=== PATIENT | female | born 1990 | race Two or more races ===

== ENCOUNTER 2019-09-17 08:55 | Observation (INO) | payer MEDICAID, OTHER ==
[2019-09-18] MEDS ORDERED: PREN-96 PO (14:18)
[2019-09-18] MEDS ORDERED: FERR-7 PO (14:19)
== END 2019-09-17 10:20 | disposition home or self-care (01) | DRG 566 ==
LOC: LDRP 08:55
PROVIDERS: ADMIT Obstetrics & Gynecology; ATTEND Obstetrics & Gynecology
DX: O48.0 Post-term pregnancy (principal); Z3A.40 40 weeks gestation of pregnancy
CPT/HCPCS: 59025; 76818; 81002; G0378

== ENCOUNTER 2019-09-18 01:35 | Inpatient (IN) | payer MEDICAID ==
[~2019-09-18] VITALS: Ht 167.6 cm; Wt 96.2 kg
[2019-09-18] VITALS (21 sets, daily range): BP systolic 98–132; BP diastolic 61–81
[2019-09-18] MEDS ORDERED: LACTATED RINGER'S 1,000 ML IV SCH (02:17)
[2019-09-18] MEDS ORDERED: LACT. RINGERS/OXYTOCIN 20UNITS 1,000 ML IV SCH (02:17)
[2019-09-18] MEDS ORDERED: LIDOCAINE 2%HCL (LOCAL ANESTH.) INJ 20ML MDV ID ONE (02:30)
[2019-09-18] MEDS ORDERED: WITCH HAZEL-GLYCERIN PAD TOP PRN (02:30)
[2019-09-18] MEDS ORDERED: PHISODERM TOP SOLN 240ML BTL TOP PRN (02:30)
[2019-09-18] MEDS ORDERED: METHYLERGONOVINE MALEATE 0.2 MG/ML AMP IM PRN (02:30)
[2019-09-18] MEDS ORDERED: NALBUPHINE HCL 10 MG/1ml INJECTION IV PRN (02:30)
[2019-09-18] MEDS ORDERED: DERMOPLAST 60ML BOTTLE TOP PRN (02:30)
[2019-09-18 02:47] LABS: Basophils # (auto) 0 uL; Basophils % (auto) 0.4 % (0.0-2.0); Eosinophils # (auto) 0 uL; Eosinophils % (auto) 0.2 % (0.0-7.0); Hemoglobin 10.9 g/dL (12.2-16.2); Monocytes # (auto) 0.5 uL; Monocytes % (auto) 4.3 % (0.0-12.0)
[2019-09-18 02:48] LABS: Hematocrit 33.4 % (36.0-46.0); Lymphocytes # (auto) 0.9 uL; Lymphocytes % (auto) 8.4 % (10.0-50.0); Mean Corpuscular Hemoglobin 25.5 pg (28.0-32.0); Mean Corpuscular Hgb Conc. 32.7 g/dL (32.0-36.0); Mean Corpuscular Volume 77.8 fL (80.0-100.0); Neutrophils # (auto) 9.7 uL; Neutrophils % (auto) 86.7 % (37.0-80.0); Platelet Count (auto) 199 10^3/uL (140-450); Red Blood Cells 4.29 10^6/uL (4.0-5.20); Red Cell Distribution Width 15.6 % (11.8-14.3); White Blood Cell 11.2 10^3/uL (4.4-10.8)
[2019-09-18 02:57] LABS: Urine Amorphous Crystal FEW /hpf (None Seen); Urine Bacteria MOD /hpf (None Seen); Urine Blood 1+ /uL (Negative); Urine Hyaline Cast FEW /lpf (0 - 2); Urine Mucus FEW (None Seen); Urine Specific Gravity 1.021 (1.001-1.035); Urine WBC 18 /hpf (0 - 5)
[2019-09-18 03:01] LABS: INR 0.94 (0.9-1.15); Partial Thromboplastin Time 26.3 sec (23.64-32.05)
[2019-09-18 03:04] LABS: Albumin 2.5 g/dL (3.4-5.0); BUN/Creatinine Ratio 11.3; Calcium 8.4 mg/dL (8.5-10.1); Potassium 3.7 mmol/L (3.5-5.1)
[2019-09-18 03:13] LABS: Bilirubin, Total 0.4 mg/dL (0.2-1.0); Total Protein 6.8 g/dL (6.4-8.2)
--- NOTE | 2019-09-18 07:09 | NUR ---
Ambulation: Fundus and lochia assessment performed prior to ambulation. Pt assisted to side of bed to dangle prior to ambulation. VS taken and stable. Patient OOB with standby assistance by RN. Patient ambulated to bathroom with steady gait. Patient able to void 900 without difficulty. Pericare teaching provided with returned demonstration by patient. Clean gown provided and bed linen changed. Patient ambulated back to bed with steady gait and no distress noted.
[2019-09-18] MEDS: IBUPROFEN 600 MG TAB PO PRN (09:27)
--- NOTE | 2019-09-18 12:55 | NUR ---
This RN called to pts room, pt stated that she pooped herself. This RN noted pt sitting on the edge of bed dripping blood onto the floor and sitting in a pool of blood. Pt c/o lower back pain. Pt's fundus checked and noted firm with massage at U, a golf ball sized clot noted and a large amount of bleeding noted. This RN calls for public speaking professorSHEN Kent and hemorrhage protocol initiated.
--- NOTE | 2019-09-18 12:55 | NUR ---
This RN called to pts room, pt stated that she pooped herself. This RN noted pt sitting on the edge of bed dripping blood onto the floor and sitting in a pool of blood. Pt A&O x 4. Pt c/o lower back pain. Pt's fundus checked and noted firm with massage at U, a golf ball sized clot noted and a large amount of bleeding noted. This RN calls for fiber technologistSHEN Kent and hemorrhage protocol initiated.
--- NOTE | 2019-09-18 12:56 | NUR ---
Dr. Aguillon called to [facility] to assess pt.
--- NOTE | 2019-09-18 12:58 | NUR ---
DR. JACKSON AT BEDSIDE AND GAVE ORDERS TO GIVE SL MEDICATIONS CYTOTEC 200 MCG. GIVEN IN FRONT OF DR. JACKSON. AND MEDICATION CYTO [place] 600 MCG RECTAL GIVEN.
--- NOTE | 2019-09-18 12:59 | NUR ---
Manual sweep of vagina performed by Dr. Aguillon, multiple clots noted with a large amount of bleeding noted.
--- NOTE | 2019-09-18 13:00 | NUR ---
Calixto catheter insertion Patient assessed and determined to be in need of calixto catheter. Order obtained from Dr. Aguillon. Patient educated on catheter and reason for insertion. All questions answered. Calixto catheter 16 guage Wolof inserted with clean sterile technique. Patient tolerated well.
--- NOTE | 2019-09-18 13:02 | NUR ---
Blood bank called for 2 units PRBC's stat.
[2019-09-18] MEDS ORDERED: METHYLERGONOVINE MALEATE 0.2 MG/ML AMP IM ONE (13:03)
--- NOTE | 2019-09-18 13:03 | NUR ---
ORDERS RECEIVED TO GIVE METHERGINE GIVE IM NOW .
[2019-09-18] MEDS ORDERED: SODIUM CHL 0.9% 1,000 ML IV ONE (13:05)
--- NOTE | 2019-09-18 13:05 | NUR ---
ORDERS RECEIVED FROM DR. JACKSON TO PATIENTS SHEN CLINTON I WAS PRESENT IN ROOM . PER DR. JACKSON GIVE 1000 NS WITH 20 UNITS OF PITOCIN AT BOLUS . ORDERS CARRIED OUT STARTED AT 1305 HOUR . DIRECTOR ROSMERY AT BEDSIDE AND RN ENDOCRINOLOGY TASHA.
--- NOTE | 2019-09-18 13:05 | NUR ---
started 2nd iv in right ac 20 gauge
--- NOTE | 2019-09-18 13:15 | NUR ---
RBC STARTED AT 1315 FOUR RN VERIFICATION OIL FIELD PUMPERRyan JESUS M. ROPER, DIRECTOR ROSMERY. DR. JACKSON ALSO AT BEDSIDE. TEMP TAKEN BEFORE TRANSFUSION STARTED 99.6 ORAL.
[2019-09-18 13:20] LABS: Basophils # (auto) 0 uL; Basophils % (auto) 0.1 % (0.0-2.0); Eosinophils # (auto) 0 uL; Hematocrit 30.1 % (36.0-46.0); Hemoglobin 9.8 g/dL (12.2-16.2); Lymphocytes % (auto) 8.6 % (10.0-50.0); Mean Corpuscular Hemoglobin 25.5 pg (28.0-32.0); Mean Corpuscular Hgb Conc. 32.4 g/dL (32.0-36.0); Mean Corpuscular Volume 78.5 fL (80.0-100.0); Monocytes # (auto) 0.4 uL; Monocytes % (auto) 3.4 % (0.0-12.0); Neutrophils # (auto) 9.9 uL; Neutrophils % (auto) 87.9 % (37.0-80.0); Platelet Count (auto) 210 10^3/uL (140-450); Red Blood Cells 3.83 10^6/uL (4.0-5.20); Red Cell Distribution Width 15.5 % (11.8-14.3); White Blood Cell 11.2 10^3/uL (4.4-10.8)
--- NOTE | 2019-09-18 13:45 | NUR ---
RELINER # [id number] AROLDO USED TO OBTAIN QUESTIONNAIRE ANESTHESIA CONSENT AND SURGICAL CONSENT FOR POSSIBLE EXAMINATION UNDER ANESTHESIA DUE TO HEMORRHAGE. PT STATES UNDERSTANDING OF ALL INFORMATION OBTAINED AND GIVES CONSENT.
[2019-09-18 13:48] LABS: INR 0.96 (0.9-1.15); Partial Thromboplastin Time 27.5 sec (23.64-32.05)
--- NOTE | 2019-09-18 13:50 | NUR ---
Quantitative blood loss noted to be 2287 ml.
--- NOTE | 2019-09-18 13:55 | NUR ---
Dr. Aguillon called by this RN and informed of quantitative blood loss of 2287ml. Continue to monitor pt and call back with fibrinogen level. CBC to be drawn 4 hours after 1 unit of PRBC's infusion is complete. Orders to be followed.
--- NOTE | 2019-09-18 14:10 | NUR ---
Dr. Aguillon at nurses station, updated on fibrinogen level 518. No new orders received at this time.
[2019-09-18] MEDS: ACETAMINOPHEN 325 MG TAB PO PRN (14:16)
--- NOTE | 2019-09-18 14:16 | NUR ---
CALLED DR. JACKSON AT 1414 TO MAKE HIM AWARE TOOK TEMP AT 1414 AND TEM WAS 100.8 . NEW ORDERS RECEIVED SEND UA, UA CULTURE AND GIVE MEDICATION TYLENOL 650 MG NOW. GAVE MEDICATION PER ORDERED AT 1416 HOUR.
[2019-09-18] MEDS ORDERED: PREN-96 PO (14:18)
[2019-09-18] MEDS ORDERED: FERR-7 PO (14:19)
--- NOTE | 2019-09-18 14:20 | NUR ---
URINE SENT TO LAB BY [facility] [place]
--- NOTE | 2019-09-18 14:55 | NUR ---
RBC TRANSFUSION FINISHED. IV FLUSHED WITH NS 10 ML
--- NOTE | 2019-09-18 15:25 | NUR ---
CALLED DR. JACKSON TO MAKE HIM AWARE PATIENT TEMP 100.4 ORAL AFTER TYLENOL WAS GIVEN. NO NEW ORDERS GIVEN.
--- NOTE | 2019-09-18 15:29 | NUR ---
1305 HOUR NS 1000 ML BAG HUNG AND 20 UNITS PITOCIN ADDED PER DR. JACKSON ORDERED TO RUN AT A BOLUS. CALLED PHARMACY AND SPOKE WITH PHARMACIST HE SAID MAKE A NOTE IN CHART YASSINE REYESR CAME UP WITH NS ONLY.
--- NOTE | 2019-09-18 15:30 | NUR ---
Bottle-feeding Education: Patient encouraged to breastfeed. Benefits of and the risk of providing formula to was discussed. Patient verbalized understanding of the benefits and is aware of risk and insists on bottle-feeding. Formula provided and instruction on formula preparation from the New Beginning booklet reviewed with patient.
--- NOTE | 2019-09-18 15:43 | NUR ---
DR. JACKSON AT BEDSIDE TO TALK TO PATIENT AND HE STATES SALINE LOCK IV, ORDER A CBC 4 HOURS AFTER TRANSFUSION STOPPED . ORDERS CARRIED OUT.
[2019-09-18] MEDS ORDERED: OXYTOCIN 20 UNT in SODIUM CHLORIDE 0.9% 1,000 ML IV ONE (15:45)
[2019-09-18] MEDS ORDERED: OXYTOCIN IV ONE (15:45)
[2019-09-18] MEDS ORDERED: SODIUM CHL IV ONE (15:45)
[2019-09-18 15:58] LABS: Urine Bacteria NONE SEEN /hpf (None Seen); Urine Blood TRACE /uL (Negative); Urine Mucus FEW (None Seen); Urine Specific Gravity 1.011 (1.001-1.035); Urine WBC 3 /hpf (0 - 5)
--- NOTE | 2019-09-18 17:14 | NUR ---
Kalina care performed, fundus noted to firm 2 below u with scant bleeding. Quantitative blood loss after weighing kalina pad and chux was 14 ml. Pt stable, no signs of distress or discomfort noted. Family at bedside.
--- NOTE | 2019-09-18 18:25 | NUR ---
Report given to Alicia Fishman RN on stable pt. Relinquished care. Addendum: 09/18/19 at 1835 by Lili Orozco RN Amended: Links added.
--- NOTE | 2019-09-18 18:55 | NUR ---
Learning Facilitator Marcelina [id number] used to go over plan of care for the night. All questions and concerns were answered.
[2019-09-18 19:21] LABS: Basophils # (auto) 0 uL; Eosinophils # (auto) 0 uL; Hemoglobin 9.1 g/dL (12.2-16.2); Monocytes # (auto) 0.7 uL; Neutrophils # (auto) 8.8 uL; White Blood Cell 10.8 10^3/uL (4.4-10.8)
[2019-09-18 19:24] LABS: Basophils % (auto) 0.3 % (0.0-2.0); Eosinophils % (auto) 0.1 % (0.0-7.0); Hematocrit 27.2 % (36.0-46.0); Lymphocytes # (auto) 1.3 uL; Lymphocytes % (auto) 11.7 % (10.0-50.0); Mean Corpuscular Hemoglobin 26.3 pg (28.0-32.0); Mean Corpuscular Hgb Conc. 33.4 g/dL (32.0-36.0); Mean Corpuscular Volume 78.7 fL (80.0-100.0); Monocytes % (auto) 6.4 % (0.0-12.0); Neutrophils % (auto) 81.5 % (37.0-80.0); Nucleated Red Blood Cells % 0.1 %; Platelet Count (auto) 171 10^3/uL (140-450); Red Blood Cells 3.46 10^6/uL (4.0-5.20)
--- NOTE | 2019-09-18 19:50 | NUR ---
Dr Aguillon called for lab results. SBAR given including lab results of H/H 9.1/27.2, WBC 10.8, and RBC 3.46. Will continue to monitor pt's bleeding.
--- NOTE | 2019-09-18 22:20 | NUR ---
[place] D/C per orders of Lior Franks. Pt tolerated well
--- NOTE | 2019-09-19 01:07 | NUR ---
Teaching: Reviewed information in New Beginnings booklet with patient. Discussed benefits of and risks associated with not . Discussed different positions, proper latch, feeding cues, and baby-led . Provided information of medication side effects related to . All questions and concerns addressed at this time. Patient verbalized understanding of information.
[2019-09-19 03:10] VITALS: BP 98/62
[2019-09-19 05:06] LABS: RPR Non Reactive (Non Reactive)
[2019-09-19 06:40] VITALS: BP 107/63
[2019-09-19] MEDS: FERROUS SULFATE 325 MG TAB PO SCH ×3 (08:24→16:52)
[2019-09-19 10:30] VITALS: BP 100/64
[2019-09-19] MEDS: ACETAMINOPHEN 325 MG TAB PO PRN (12:28)
[2019-09-19 15:02] VITALS: BP 92/56
[2019-09-19] MEDS ORDERED: OXYTOCIN 10UNIT/ML 1ML VIAL IV ONE (16:29)
[2019-09-19 19:00] VITALS: BP 103/66
[2019-09-19 22:48] VITALS: BP 99/60
[2019-09-20] MEDS: IBUPROFEN 600 MG TAB PO PRN (01:50)
[2019-09-20 02:57] VITALS: BP 97/60
[2019-09-20 07:15] VITALS: BP 103/60
[2019-09-20] MEDS: FERROUS SULFATE 325 MG TAB PO SCH (08:17)
--- NOTE | 2019-09-20 08:17 | NUR ---
Discharge: Discharge instructions given as ordered. Pt encouraged to follow up with [facility] [employer] as instructed. All questions and concerns addressed. Patient verbalized understanding. Medication reconciliation completed and copy given to patient. All required/requested vaccines given and copies of vaccinations given to patient. Patient encouraged to prepare to depart unit. PATIENT STATES HER RIDE HOME IS ON THE WAY.
--- NOTE | 2019-09-20 09:25 | NUR ---
Discharge: Patient taken to vehicle via wheelchair with all personal belongings, accompanied by staff and family member. No distress noted at time of departure, no adverse changes in status since initial assessment.
== END 2019-09-20 09:25 | disposition home or self-care (01) | DRG 560 ==
LOC: LDRP 01:35 → OBSVTOIN 01:35 → LDRP 04:06
PROVIDERS: ADMIT Obstetrics & Gynecology; ATTEND Obstetrics & Gynecology
PROC: 10E0XZZ Delivery of Products of Conception, External Approach (ICD-10-PCS; principal; 2019-09-18)
PROC: 10907ZC Drainage of Amniotic Fluid, Therapeutic from Products of Conception, Via Natural or Artificial Opening (ICD-10-PCS; 2019-09-18)
PROC: 30233N1 Transfusion of Nonautologous Red Blood Cells into Peripheral Vein, Percutaneous Approach (ICD-10-PCS; 2019-09-18)
DX: O48.0 Post-term pregnancy (principal); O72.1 Other immediate postpartum hemorrhage; O36.63X0 Maternal care for excessive fetal growth, third trimester, not applicable or unspecified; Z37.0 Single live birth; Z3A.40 40 weeks gestation of pregnancy
CPT/HCPCS: 36415; 51702; 59025; 59409; 80053; 81001; 81002; 84112; 85025; 85384; 85610; 85730; 86592; 86850; 86900; 86901; 86920; 87086; 94762; 96361; 96366; 96372; G0378; J2590